=== PATIENT | female | born 1940 | race African-American/Black ===

== ENCOUNTER 2016-12-28 22:57 | Inpatient (IN) | payer MEDICARE, MEDICAID ==
[~2016-12-28 22:57] MED LIST: ACTOS15 MG PO; ADULT ASPIRIN81 MG; ASPIR 8181 M1 PO; ASPIR 8181 MG PO; AVANDIA2 MG; BABY ASPIRIN81 MG; BACTRIM DS1 TAB PO; FERROUS SU324 ( 65 ); FERROUS SU325 ( 65 ); FISH OIL 1,0001 CAP PO; FISH OIL 1,2001 EACH PO; FISH OIL 11000 MG/CA PO; GLIPIZIDE METFO PO; GLUCOVANCE 5/501 TAB; GLYBURID-METFOR1 T; HYDROCHLOROTHIA25 M1 PO; HYDROCHLOROTHIA25 MG; IRON325 ( 65 ); IRON325 M3 PO; KLOR-CON 1010 ME1 PO; KLOR-CON 1010 MEQ; LIPITOR20 MG; LISINOPRIL20 MG; LISINOPRIL40 M1 PO; LISINOPRIL40 MG; NORCO 5/325 TAB1 TAB PO; NORVASC2.5 MG; NORVASC5 M2 PO; OMEPRAZOLE20 M3 PO; OMEPRAZOLE20 MG; POTASSIUM CHLO10 MEQ; TRICOR145 M1; TRICOR145 M1 PO; ZYRTEC10 M1 PO; [UNRECOGNIZED DRUG - OTHER]
[2016-12-28 23:41] LABS: BASO % 0.1 % (0-2); HCT-HEMATOCRIT 36.4 % (34.0-49.0); HGB-HEMOGLOBIN 12.1 gm/dl (12.0-15.5); IMMATURE GRANULOCYTES ABSOLUTE 0.06 tho/cmm (0-0.03); IMMATURE GRANULOCYTES PERCENT 0.4 % (0-0.3); LYMPH % 7.6 % (20-45); LYMPH ABSOLUTE COUNT 1.2 tho/cmm (0.8-4.5); MCH (MEAN CORPUSCULAR HGB) 23.9 pg (28.0-32.0); MCHC MEAN CORPUSCULAR HGB CONC 33.2 % (32.0-36.0); MCV (MEAN CELL VOLUME) 71.8 fl (82.0-96.0); MEAN PLATELET VOLUME 9.1 cmc (9.4-12.4); MONO % 9.9 % (0-12); MONOCYTE ABSOLUTE COUNT 1.6 tho/cmm (0.0-1.2); NEUTROPHIL ABSOLUTE COUNT 13.4 tho/cmm (1.6-8.0); NEUTROPHIL-AUTOMATED 13.4 tho/cmm (1.6-8.0); PLATELET COUNT 291 tho/cmm (150-450); RED BLOOD COUNT 5.07 mil/cmm (4.00-5.20); RED CELL DISTRIBUTION WIDTH 16.3 % (12.4-16.4); WHITE BLOOD COUNT 16.3 tho/cmm (4.0-10.0)
[2016-12-29] LABS: ALB/GLOB RATIO 0.6 (0.8-2.0); ALKALINE PHOSPHATASE 75 U/L (33-138); ALT/SGPT 14 U/L (12-78); ANION GAP 15 mmol/L (0-20); AST/SGOT 13 U/L (10-40); BILIRUBIN,TOTAL 0.9 mg/dl (0-1.5); BLOOD UREA NITROGEN 20 mg/dl (6-24); CALCIUM 9.2 mg/dl (8.5-10.5); CARBON DIOXIDE-VENOUS 23 mmol/L (22-32); CHLORIDE 102 mmol/l (96-110); CREATININE 1.41 mg/dl (0.50-1.10); GLUCOSE 169 mg/dL (70-110); LIPASE 176 U/L (73-393); POTASSIUM 4.2 mmol/L (3.7-5.1); SODIUM 136 mmol/L (135-145); eGFR VALUE FOR BLACK 42 mL/Min
[2016-12-29 00:14] LABS: PROCALCITONIN 1.88 ng/ml (0.05-0.09)
[2016-12-29 01:35] LABS: URINE APPEARANCE HAZY; URINE COLOR YELLOW; URINE LEUKOCYTE ESTERASE NEGATIVE (NEG); URINE PROTEIN POSITIVE (NEG); URINE SPECIFIC GRAVITY 1.015 (1.003-1.030)
[2016-12-29 01:36] LABS: URINE BILIRUBIN NEGATIVE (NEG); URINE BLOOD SMALL (NEG); URINE GLUCOSE (UA) NEGATIVE (NEG); URINE KETONE NEGATIVE (NEG); URINE NITRITE NEGATIVE (NEG)
[2016-12-29 01:52] LABS: URINE BACTERIA 2+; URINE WBC 0-1 /[HPF] (0-5)
[2016-12-29] MEDS ORDERED: LUMIGAN2.5 M2 EACH EYE (01:52)
[2016-12-29] MEDS ORDERED: GLUCOPHAGE500 M3 PO (01:52)
[2016-12-29] MEDS ORDERED: LANTUS SOL100 UNIT/1 SC (01:54)
[2016-12-29 06:30] LABS: INR 1.6 INR (0.9-1.1); PROTHROMBIN TIME 19.1 SECONDS (9.0-13.6)
[2016-12-29 06:32] LABS: BASO % 0.1 % (0-2); EOS % 0.2 % (0-7); HCT-HEMATOCRIT 31.5 % (34.0-49.0); HGB-HEMOGLOBIN 10.2 gm/dl (12.0-15.5); IMMATURE GRANULOCYTES ABSOLUTE 0.05 tho/cmm (0-0.03); IMMATURE GRANULOCYTES PERCENT 0.4 % (0-0.3); LYMPH % 8.2 % (20-45); MCH (MEAN CORPUSCULAR HGB) 23.4 pg (28.0-32.0); MCHC MEAN CORPUSCULAR HGB CONC 32.4 % (32.0-36.0); MCV (MEAN CELL VOLUME) 72.4 fl (82.0-96.0); MEAN PLATELET VOLUME 8.7 cmc (9.4-12.4); MONO % 10.8 % (0-12); MONOCYTE ABSOLUTE COUNT 1.3 tho/cmm (0.0-1.2); NEUTROPHIL ABSOLUTE COUNT 9.9 tho/cmm (1.6-8.0); NEUTROPHIL-AUTOMATED 9.9 tho/cmm (1.6-8.0); NEUTROPHILS % 80.3 % (40-80); PLATELET COUNT 228 tho/cmm (150-450); RED BLOOD COUNT 4.35 mil/cmm (4.00-5.20); RED CELL DISTRIBUTION WIDTH 16.4 % (12.4-16.4); WHITE BLOOD COUNT 12.4 tho/cmm (4.0-10.0)
[2016-12-29 06:50] LABS: BLOOD UREA NITROGEN 17 mg/dl (6-24); CALCIUM 8.1 mg/dl (8.5-10.5); CARBON DIOXIDE-VENOUS 25 mmol/L (22-32); CREATININE 1.34 mg/dl (0.50-1.10); GLUCOSE 127 mg/dL (70-110); MAGNESIUM 1.6 mg/dl (1.3-2.6); eGFR VALUE FOR BLACK 44 mL/Min
[2016-12-29 07:10] LABS: ANION GAP 14 mmol/L (0-20); CHLORIDE 108 mmol/l (96-110); POTASSIUM 3.8 mmol/L (3.7-5.1); SODIUM 143 mmol/L (135-145)
[2016-12-30 06:11] LABS: BASO % 0.1 % (0-2); EOS % 0.1 % (0-7); HCT-HEMATOCRIT 26.8 % (34.0-49.0); HGB-HEMOGLOBIN 8.7 gm/dl (12.0-15.5); IMMATURE GRANULOCYTES ABSOLUTE 0.04 tho/cmm (0-0.03); IMMATURE GRANULOCYTES PERCENT 0.4 % (0-0.3); LYMPH % 6.6 % (20-45); LYMPH ABSOLUTE COUNT 0.8 tho/cmm (0.8-4.5); MCH (MEAN CORPUSCULAR HGB) 23.4 pg (28.0-32.0); MCHC MEAN CORPUSCULAR HGB CONC 32.5 % (32.0-36.0); MEAN PLATELET VOLUME 9.3 cmc (9.4-12.4); MONO % 7.8 % (0-12); MONOCYTE ABSOLUTE COUNT 0.9 tho/cmm (0.0-1.2); NEUTROPHIL ABSOLUTE COUNT 9.7 tho/cmm (1.6-8.0); NEUTROPHIL-AUTOMATED 9.7 tho/cmm (1.6-8.0); PLATELET COUNT 202 tho/cmm (150-450); RED BLOOD COUNT 3.72 mil/cmm (4.00-5.20); RED CELL DISTRIBUTION WIDTH 16.7 % (12.4-16.4); WHITE BLOOD COUNT 11.4 tho/cmm (4.0-10.0)
[2016-12-30 06:36] LABS: ALB/GLOB RATIO 0.4 (0.8-2.0); ALBUMIN 2.1 g/dl (3.5-5.0); ALKALINE PHOSPHATASE 65 U/L (33-138); ANION GAP 11 mmol/L (0-20); BILIRUBIN,DIRECT 0.3 mg/dl (0.0-0.3); BILIRUBIN,INDIRECT 0.4 mg/dL (0.0-1.0); BILIRUBIN,TOTAL 0.7 mg/dl (0-1.5); BLOOD UREA NITROGEN 12 mg/dl (6-24); CARBON DIOXIDE-VENOUS 24 mmol/L (22-32); CHLORIDE 107 mmol/l (96-110); CREATININE 1.14 mg/dl (0.50-1.10); GLUCOSE 162 mg/dL (70-110); POTASSIUM 3.9 mmol/L (3.7-5.1); SODIUM 138 mmol/L (135-145); eGFR VALUE FOR BLACK 54 mL/Min
[2016-12-30 06:46] LABS: ALT/SGPT 42 U/L (12-78); AST/SGOT 61 U/L (10-40)
[2016-12-31 05:36] LABS: BASO % 0.1 % (0-2); EOS % 1.2 % (0-7); EOSINOPHIL ABSOLUTE COUNT 0.2 tho/cmm (0.0-0.7); HCT-HEMATOCRIT 25.8 % (34.0-49.0); HGB-HEMOGLOBIN 8.2 gm/dl (12.0-15.5); IMMATURE GRANULOCYTES ABSOLUTE 0.04 tho/cmm (0-0.03); IMMATURE GRANULOCYTES PERCENT 0.3 % (0-0.3); LYMPH % 6.9 % (20-45); LYMPH ABSOLUTE COUNT 0.9 tho/cmm (0.8-4.5); MCH (MEAN CORPUSCULAR HGB) 23.2 pg (28.0-32.0); MCHC MEAN CORPUSCULAR HGB CONC 31.8 % (32.0-36.0); MCV (MEAN CELL VOLUME) 72.9 fl (82.0-96.0); MEAN PLATELET VOLUME 8.9 cmc (9.4-12.4); MONO % 10.3 % (0-12); MONOCYTE ABSOLUTE COUNT 1.3 tho/cmm (0.0-1.2); NEUTROPHIL ABSOLUTE COUNT 10.3 tho/cmm (1.6-8.0); NEUTROPHIL-AUTOMATED 10.3 tho/cmm (1.6-8.0); NEUTROPHILS % 81.2 % (40-80); PLATELET COUNT 218 tho/cmm (150-450); RED BLOOD COUNT 3.54 mil/cmm (4.00-5.20); RED CELL DISTRIBUTION WIDTH 16.7 % (12.4-16.4); WHITE BLOOD COUNT 12.7 tho/cmm (4.0-10.0)
[2016-12-31 05:59] LABS: ANION GAP 14 mmol/L (0-20); BLOOD UREA NITROGEN 13 mg/dl (6-24); CARBON DIOXIDE-VENOUS 24 mmol/L (22-32); CHLORIDE 104 mmol/l (96-110); CREATININE 1.19 mg/dl (0.50-1.10); GLUCOSE 141 mg/dL (70-110); POTASSIUM 4.2 mmol/L (3.7-5.1); SODIUM 138 mmol/L (135-145); eGFR VALUE FOR BLACK 51 mL/Min
[2017-01-01 06:06] LABS: BASO % 0.1 % (0-2); EOS % 1.9 % (0-7); EOSINOPHIL ABSOLUTE COUNT 0.2 tho/cmm (0.0-0.7); HCT-HEMATOCRIT 24.9 % (34.0-49.0); HGB-HEMOGLOBIN 7.8 gm/dl (12.0-15.5); IMMATURE GRANULOCYTES ABSOLUTE 0.06 tho/cmm (0-0.03); IMMATURE GRANULOCYTES PERCENT 0.5 % (0-0.3); LYMPH % 10.3 % (20-45); LYMPH ABSOLUTE COUNT 1.3 tho/cmm (0.8-4.5); MCH (MEAN CORPUSCULAR HGB) 22.9 pg (28.0-32.0); MCHC MEAN CORPUSCULAR HGB CONC 31.3 % (32.0-36.0); MCV (MEAN CELL VOLUME) 73.2 fl (82.0-96.0); MEAN PLATELET VOLUME 8.7 cmc (9.4-12.4); MONO % 10.3 % (0-12); MONOCYTE ABSOLUTE COUNT 1.3 tho/cmm (0.0-1.2); NEUTROPHIL ABSOLUTE COUNT 9.9 tho/cmm (1.6-8.0); NEUTROPHIL-AUTOMATED 9.9 tho/cmm (1.6-8.0); NEUTROPHILS % 76.9 % (40-80); PLATELET COUNT 250 tho/cmm (150-450); RED CELL DISTRIBUTION WIDTH 16.8 % (12.4-16.4); WHITE BLOOD COUNT 12.9 tho/cmm (4.0-10.0)
[2017-01-01 06:37] LABS: ANION GAP 14 mmol/L (0-20); BLOOD UREA NITROGEN 18 mg/dl (6-24); CALCIUM 8.5 mg/dl (8.5-10.5); CARBON DIOXIDE-VENOUS 24 mmol/L (22-32); CHLORIDE 105 mmol/l (96-110); CREATININE 1.29 mg/dl (0.50-1.10); GLUCOSE 149 mg/dL (70-110); POTASSIUM 4.6 mmol/L (3.7-5.1); SODIUM 138 mmol/L (135-145); eGFR VALUE FOR BLACK 47 mL/Min
[2017-01-02 07:10] LABS: BASO % 0.3 % (0-2); EOS % 1.9 % (0-7); EOSINOPHIL ABSOLUTE COUNT 0.2 tho/cmm (0.0-0.7); HCT-HEMATOCRIT 24.1 % (34.0-49.0); HGB-HEMOGLOBIN 7.7 gm/dl (12.0-15.5); IMMATURE GRANULOCYTES ABSOLUTE 0.14 tho/cmm (0-0.03); IMMATURE GRANULOCYTES PERCENT 1.3 % (0-0.3); LYMPH % 9.4 % (20-45); LYMPH ABSOLUTE COUNT 1.1 tho/cmm (0.8-4.5); MCH (MEAN CORPUSCULAR HGB) 23.3 pg (28.0-32.0); MCV (MEAN CELL VOLUME) 72.8 fl (82.0-96.0); MEAN PLATELET VOLUME 8.3 cmc (9.4-12.4); MONO % 9.4 % (0-12); MONOCYTE ABSOLUTE COUNT 1.1 tho/cmm (0.0-1.2); NEUTROPHIL ABSOLUTE COUNT 8.7 tho/cmm (1.6-8.0); NEUTROPHIL-AUTOMATED 8.7 tho/cmm (1.6-8.0); NEUTROPHILS % 77.7 % (40-80); PLATELET COUNT 311 tho/cmm (150-450); RED BLOOD COUNT 3.31 mil/cmm (4.00-5.20); WHITE BLOOD COUNT 11.2 tho/cmm (4.0-10.0)
[2017-01-02 07:27] LABS: ANION GAP 10 mmol/L (0-20); BLOOD UREA NITROGEN 14 mg/dl (6-24); CALCIUM 8.9 mg/dl (8.5-10.5); CARBON DIOXIDE-VENOUS 26 mmol/L (22-32); CHLORIDE 111 mmol/l (96-110); CREATININE 1.04 mg/dl (0.50-1.10); GLUCOSE 116 mg/dL (70-110); POTASSIUM 5.1 mmol/L (3.7-5.1); SODIUM 142 mmol/L (135-145); eGFR VALUE FOR BLACK 60 mL/Min
[2017-05-06] MEDS ORDERED: LOPID600 M1 PO (14:07)
[2017-05-06] MEDS ORDERED: FOLIC ACID1 M1 PO (14:07)
[2017-05-06] MEDS ORDERED: TYLENOL EXTRA500 M1 PO (14:08)
[2017-05-06] MEDS ORDERED: CPAP (16:01)
[2017-05-30] MEDS ORDERED: ASPIRIN325 M3 PO (09:39)
[2017-05-30] MEDS ORDERED: ROXICODONE5 M2 PO (09:40)
[2017-05-30] MEDS ORDERED: ULTRAM50 M1 PO (09:41)
[2017-05-30] MEDS ORDERED: MIRALAX17 G2 PO (09:42)
[2017-05-30] MEDS ORDERED: CELEBREX200 M1 PO (09:43)
[2017-05-30] MEDS ORDERED: TYLENOL325 M2 PO (09:43)
[2017-05-30] MEDS ORDERED: DULCOLAX5 M1 PO (09:44)
[2017-05-30] MEDS ORDERED: DULCOLAX10 MG PR (09:45)
[2017-05-30] MEDS ORDERED: MILK OF MAGNESIA PO (09:46)
[2017-05-30] MEDS ORDERED: SENOKOT-S TABL1 EACH PO (09:47)
[2017-05-30] MEDS ORDERED: ZOFRAN4 M2 PO (09:47)
[2017-06-20] MEDS ORDERED: ZYRTEC1010 PO (16:31)
[2017-06-21] MEDS ORDERED: OMEPRAZOLE40 M2 PO (12:26)
[2017-06-21] MEDS ORDERED: IRON325 M3 PO (12:28)
== END 2017-01-02 13:35 | DRG 854 ==
LOC: EDMED 22:57 → EMR2 12-29 02:54 → 5WD 12-29 04:14 → ORW 12-29 14:05 → PACU 12-29 19:13 → 5WD 12-29 19:44
PROVIDERS: Emergency Medicine; Hospitalist; Registered Nurse; ADMIT Internal Medicine
PROC: 0FT44ZZ Resection of Gallbladder, Percutaneous Endoscopic Approach (ICD-10-PCS; principal; 2016-12-29)
DX: A41.51 Sepsis due to Escherichia coli [E. coli] (principal); K80.12 Calculus of gallbladder with acute and chronic cholecystitis without obstruction; N17.9 Acute kidney failure, unspecified; E87.70 Fluid overload, unspecified; D62 Acute posthemorrhagic anemia; J98.11 Atelectasis; R65.20 Severe sepsis without septic shock; E11.9 Type 2 diabetes mellitus without complications; G47.33 Obstructive sleep apnea (adult) (pediatric); E78.5 Hyperlipidemia, unspecified; K21.9 Gastro-esophageal reflux disease without esophagitis; I10 Essential (primary) hypertension; R09.02 Hypoxemia; Z85.42 Personal history of malignant neoplasm of other parts of uterus; Z79.82 Long term (current) use of aspirin; Z79.4 Long term (current) use of insulin; D57.3 Sickle-cell trait
CPT/HCPCS: G8978-GP-CI; G8979-GP-CH; J1644; J1815; J1956; J2270; J2405; J2543; J3010; J3480; J7030; P9017